=== PATIENT | male | born 1995 | race American Indian/Alaskan Native ===

== ENCOUNTER 2017-01-11 11:18 | Emergency (ER) | payer BC ==
[2017-01-11 11:59] VITALS: BP 156/77
== END 2017-01-12 05:37 | disposition left against medical advice (07) ==
LOC: ED 11:18
DX: R07.9 Chest pain, unspecified (principal); Z53.21 Procedure and treatment not carried out due to patient leaving prior to being seen by health care provider
CPT/HCPCS: 93005; 93010